=== PATIENT | male | born 1955 | race Caucasian/White ===

== ENCOUNTER 2021-10-17 23:48 | Emergency (ER) | payer MEDICARE, OTHER ==
[2021-10-18 00:34] VITALS: BP 159/89; PULSE 106
[2021-10-18] MEDS ORDERED: Sodium Chloride 0.9% 10 ML Syringe FLUSH PRN (01:03)
--- NOTE | 2021-10-18 01:10 | EDM.PDOC ---
ED HPI GENERAL MEDICAL PROBLEM - General Chief Complaint: General Stated Complaint: TOOTH PAIN Time Seen by Provider: 10/18/21 00:53 Source of Information: Reports: Patient History Limitations: Reports: No Limitations - History of Present Illness INITIAL COMMENTS - FREE TEXT/NARRATIVE: Patient presents the emergency room today secondary to left upper dental concern. Patient has been under care of a local dentist Guzman Blum starting 19 September timeframe he was given a round of Augmentin and then seen in follow- up with an attempt for dental extraction unable to extract teeth had return of dental swelling and was placed on another round of Augmentin he is on day 7 of that. Also had recommendation for follow-up with the oral surgeon he has attempted to get in to see the oral surgeon Guzman Blum but there but definitely lacking the first of the year he has not tried any other location. Patient has throbbing and swelling to his left cheek and under his eye lid area no pain he says no fevers no chills he came in because he woke up tonight with a puffy eye increased swelling in his left cheek area he felt his heart pounding and he noted that his blood pressure was. Patient states that he has no drainage or discharge or symptoms otherwise PMH--HTN, BPH, tobacco use d/o, recovered alcoholic, recovered polysub abuse Meds--lisionopril, flomax NKDA Tob--former smoker 3ppd, now only uses chewing tob EtOH--none currently/recovered alcoholic Drugs--former polysubstance abuse/recovered Patient reports having had COVID in March 2021, he has not received his COVID immunization - Related Data Allergies Allergy/AdvReac Type Severity Reaction Status Date / Time No Known Allergies Allergy Verified 03/12/16 11:03 Home Meds: Home Meds Amoxicillin 875 mg PO BID 10/18/21 [History] Finasteride 5 mg PO DAILY 10/18/21 [History] Naproxen Sodium [Aleve] 1 tab PO BID PRN 10/18/21 [History] Simvastatin [Zocor] 20 mg PO DAILY 10/18/21 [History] Tamsulosin [Flomax] 0.4 mg PO DAILY 10/18/21 [History] lisinopriL [Lisinopril] 10 mg PO DAILY 10/18/21 [History] Past Medical History Cardiovascular History: Reports: Hypertension Respiratory History: Reports: Bronchitis, Recurrent Genitourinary History: Reports: BPH Musculoskeletal History: Reports: Fracture Neurological History: Reports: Other (See Below) Other Neuro History: bells palsy Psychiatric History: Reports: Depression - Infectious Disease History Infectious Disease History: Reports: Chicken Pox, Hepatitis C - Past Surgical History HEENT Surgical History: Reports: Oral Surgery Social & Family History - Tobacco Use Years of Tobacco use: 14 Packs/Tins Daily: 0.3 - Caffeine Use Caffeine Use: Reports: Coffee - Recreational Drug Use Recreational Drug Use: No ED ROS GENERAL - Review of Systems Review Of Systems: Comprehensive ROS is negative, except as noted in HPI. Constitutional: Denies: Fever, Chills, Night Sweats, Decreased Appetite HEENT: Reports: Dental Pain Respiratory: Reports: No Symptoms Cardiovascular: Reports: No Symptoms GI/Abdominal: Reports: No Symptoms ED EXAM, GENERAL - Physical Exam Exam: See Below Exam Limited By: No Limitations General Appearance: Alert, WD/WN, No Apparent Distress Eye Exam: Bilateral Eye: EOMI, PERRL, Vision Changes Ears: Normal External Exam, Hearing Grossly Normal Nose: Normal Inspection Throat/Mouth: Normal Voice, No Airway Compromise, Other (Patient noted to have generalized poor dentition with the majority of his teeth missing area of concern is his left upper jawline cheek area there is some mild gum erythema and edema he has 1 tooth located in that area that is in poor repair significant plaquing. No drainage/discharge from dentatio) Head: Facial Swelling, Facial Tenderness, Other (patient has noted edema to lower left eye/orbital area, noted induration/erythema to left check area, denies tendereness) Neck: Normal Inspection, Supple, Non-Tender, Full Range of Motion Respiratory/Chest: No Respiratory Distress, Lungs Clear, Normal Breath Sounds, No Accessory Muscle Use Cardiovascular: Normal Peripheral Pulses, Regular Rate, Rhythm, No Edema, No Murmur Peripheral Pulses: 2+: Radial (L), Radial (R) GI/Abdominal: Normal Bowel Sounds, Soft (Male) Exam: Deferred Rectal (Males) Exam: Deferred Back Exam: Normal Inspection Extremities: Normal Inspection, Normal Range of Motion, Normal Capillary Refill Neurological: Alert, Oriented, CN II-XII Intact, Normal Cognition, Normal Gait, No Motor/Sensory Deficits Psychiatric: Normal Affect, Normal Mood Skin Exam: Warm, Dry, Intact, Normal Color Course - Vital Signs Last Recorded V/S: Last Vital Signs Temp 98.3 F 10/18/21 00:44 Pulse 106 H 10/18/21 00:44 Resp 18 10/18/21 00:44 BP 159/89 H 10/18/21 00:44 Pulse Ox 96 10/18/21 00:44 - Orders/Labs/Meds Orders: Active Orders 24 hr Category Date Time Status Iopamidol [Isovue-300 (61%)] Med 10/18/21 01:30 Active 100 ml IV . DIRECTED Sodium Chloride 0.9% [Saline Flush] Med 10/18/21 01:03 Active 10 ml FLUSH ASDIRECTED PRN Saline Lock Insert [OM.PC] Routine Oth 10/18/21 01:03 Ordered Medication Orders Iopamidol (Iopamidol 612 Mg/Ml 100 Ml Bottle) 100 ml IV . DIRECTED ROSITA Last Admin: 10/18/21 01:34 Dose: 100 ml Documented by: STALIN Sodium Chloride (Sodium Chloride 0.9% 10 Ml Syringe) 10 ml FLUSH ASDIRECTED PRN PRN Reason: Keep Vein Open Last Admin: 10/18/21 01:33 Dose: 10 ml Documented by: MAGDA Labs: Laboratory Tests 10/18/21 10/18/21 Range/Units 01:17 01:17 WBC 8.1 (4.5-11.0) K/uL RBC 5.26 (4.30-5.90) M/uL Hgb 14.6 (12.0-15.0) g/dL Hct 44.1 (40.0-54.0) % MCV 84 (80-98) fL MCH 28 (27-31) pg MCHC 33 (32-36) % Plt Count 274 (150-400) K/uL Neut % (Auto) 81.4 H (36-66) % Lymph % (Auto) 9.9 L (24-44) % Walker % (Auto) 7.4 H (2-6) % Eos % (Auto) 1.2 L (2-4) % Baso % (Auto) 0.1 (0-1) % Sodium 139 L (140-148) mmol/L Potassium 3.9 (3.6-5.2) mmol/L Chloride 101 (100-108) mmol/L Carbon Dioxide 29 (21-32) mmol/L Anion Gap 12.9 (5.0-14.0) mmol/L BUN 19 H (7-18) mg/dL Creatinine 1.3 (0.8-1.3) mg/dL Est Cr Clr Drug Dosing 54.08 mL/min Estimated GFR (MDRD) 55 L (>60) Glucose 112 H (74-106) mg/dL Calcium 8.7 (8.5-10.1) mg/dL Meds: Medications Generic Name Dose Route Start Last Admin Trade Name Freq PRN Reason Stop Dose Admin Iopamidol 100 ml 10/18/21 01:30 10/18/21 01:34 Iopamidol 612 Mg/Ml 100 Ml Bottle IV 100 ml . DIRECTED ROSITA Administration Sodium Chloride 10 ml 10/18/21 01:03 10/18/21 01:33 Sodium Chloride 0.9% 10 Ml Syringe FLUSH 10 ml ASDIRECTED PRN Administration Keep Vein Open Discontinued Medications Generic Name Dose Route Start Last Admin Trade Name Freq PRN Reason Stop Dose Admin Sodium Chloride 75 mls @ 2 mls/sec 10/18/21 01:23 10/18/21 01:33 Normal Saline IV 10/18/21 01:24 2 mls/sec ASDIRECTED STA Administration - Radiology Interpretation Free Text/Narrative:: CT Soft tissue facial noted for #1 soft tissue density with adjacent fat stranding in the left nasolabial fold likely represents phlegmon no discrete abscess there is periodontal disease in the left maxillary canine likely source #2 is left upper orbital edema no underlying abscess. See full report for details CT Results Time: 03:14 Departure - Departure Time of Disposition: 03:14 Disposition: Home, Self-Care 01 Condition: Good Clinical Impression: Facial cellulitis, Periodontal disease, unspecified, Dental caries - Discharge Information *PRESCRIPTION DRUG MONITORING PROGRAM REVIEWED*: Not Applicable *COPY OF PRESCRIPTION DRUG MONITORING REPORT IN PATIENT JOSE: Not Applicable Instructions: Dental Caries, Adult, [id number], Cellulitis, Adult, [id number], Diet and Dental Disease Referrals: PCP,None [Primary Care Provider] - Forms: ED Department Discharge Additional Instructions: Is recommended that you have an antibiotic change at this time secondary to increasing symptoms on current antibiotic in which this is your second course of. I provided you with a prescription for clindamycin take 2 tablets every 6 hours until gone. It is strongly recommended that you find an oral surgeon who can see you sooner then your reported November timeframe as you need to have definitive care related to dental infection that is causing cellulitis Ensure you are drinking plenty of fluids to include water, juice, sports drinks of choice to stay well-hydrated Use acetaminophen (Tylenol) and/or ibuprofen (Motrin, Advil) for any pain disco mfort fevers chills that you may have related to your cellulitis and dental concerns It is recommended that you follow-up with your primary care provider/family physician in regards to facial cellulitis to ensure that symptoms are improving in nature scheduled in the next 3 to 5 days Sepsis Event Note (ED) - Focused Exam Vital Signs: Vital Signs Temp Pulse Resp BP Pulse Ox 10/18/21 00:44 98.3 F 106 H 18 159/89 H 96 10/18/21 00:31 98.3 F 106 H 18 159/89 H 96 - My Orders Last 24 Hours: My Active Orders 10/18/21 01:03 Sodium Chloride 0.9% [Saline Flush] 10 ml FLUSH ASDIRECTED PRN Saline Lock Insert [OM.PC] Routine 10/18/21 01:30 Iopamidol [Isovue-300 (61%)] 100 ml IV . DIRECTED - Assessment/Plan Last 24 Hours: My Active Orders 10/18/21 01:03 Sodium Chloride 0.9% [Saline Flush] 10 ml FLUSH ASDIRECTED PRN Saline Lock Insert [OM.PC] Routine 10/18/21 01:30 Iopamidol [Isovue-300 (61%)] 100 ml IV . DIRECTED
[2021-10-18] MEDS ORDERED: Sodium Chloride 0.9% 75 ML IV STA (01:23)
[2021-10-18] MEDS ORDERED: Iopamidol 612 MG/ML 100 ML Bottle IV SCH (01:30)
--- NOTE | 2021-10-18 03:02 | CRLCT ---
For Patients: As a result of the Century Cures Act, medical imaging exams and procedure reports are released immediately into your electronic medical record. You may view this report before your referring provider. If you have questions, please contact your health care provider. Indication: Infected tooth, left facial swelling and redness Technique: Contrast enhanced axial CT images through the face. 100 mL Isovue-300 contrast agent was administered intravenously. Sagittal and coronal reconstructions are provided. Comparison: None Findings: There is soft tissue density with adjacent fat stranding in the left nasolabial fold, likely representing phlegmon. There is no appreciable underlying abscess. Subcutaneous edema involving the left cheek is consistent with cellulitis. There is lucency surrounding the root of the left maxillary canine, with erosion of the adjacent anterior ridge, consistent with periodontal disease and likely representing source of infection. Carious lesions are noted involving numerous teeth. There is mild mucosal thickening in the alveolar recesses of the maxillary sinuses. Remainder of the visualized paranasal sinuses are clear. There are no sinus air-fluid levels. The mastoid air cells and middle ear cavities are also aerated mild edema is noted in the left infraorbital region, without underlying fluid collection. The orbital contents are normal. Impression: 1. Soft tissue density with adjacent fat stranding in the left nasolabial fold likely represents phlegmon. No discrete underlying abscess. Periodontal disease of the left maxillary canine likely represents source of fashion. 2. Left infraorbital edema. No underlying abscess. Please note that all CT scans at this facility use dose modulation, iterative reconstruction, and/or weight-based dosing when appropriate to reduce radiation dose to as low as reasonably achievable. Dictated by Mal Queen MD @ 10/18/2021 3:00:11 AM (Electronically Signed)
== END 2021-10-18 03:44 | disposition home or self-care (01) ==
LOC: JP.ED 23:48
DX: L03.211 Cellulitis of face (principal); K02.9 Dental caries, unspecified; N40.0 Benign prostatic hyperplasia without lower urinary tract symptoms; I10 Essential (primary) hypertension; Z79.899 Other long term (current) drug therapy; Z72.0 Tobacco use
CPT/HCPCS: 36415; 70487; 80048; 85025; 99284; Q9967

== ENCOUNTER 2025-02-09 13:24 | Emergency (ER) | payer BC, MEDICARE ==
[2025-02-09 13:52] VITALS: PULSE 64
[2025-02-09 14:09] LABS: BASOPHILS PERCENT AUTO 0.3 % (0.1-1.3); EOSINOPHILS ABSOLUTE AUTO 0.05 K/uL (0.00-0.40); EOSINOPHILS PERCENT AUTO 0.8 % (0.0-5.4); HEMATOCRIT 40.9 % (38.4-49.7); HEMOGLOBIN 13.7 g/dL (12.9-16.9); IMMATURE GRAN PERCENT AUTO 0.2 % (0.0-0.7); LYMPHOCYTES ABSOLUTE AUTO 0.79 K/uL (0.8-3.3); LYMPHOCYTES PERCENT AUTO 12.1 % (11.4-47.7); MEAN CORPUSCULAR HEMOGLOBIN 28.1 pg (31.6-35.5); MEAN CORPUSCULAR HGB CONC 33.5 g/dL (31.6-35.5); MEAN CORPUSCULAR VOLUME 83.8 fL (81.4-99.0); MONOCYTES PERCENT AUTO 4.6 % (3.3-12.6); NEUTROPHILS ABSOLUTE AUTO 5.37 K/uL (1.0-7.6); PLATELET COUNT,PLT 233 K/uL (130-375); RED BLOOD CELL COUNT 4.88 M/uL (4.14-5.76); WHITE BLOOD CELL COUNT,WBC 6.5 K/uL (3.2-11.0)
[2025-02-09 14:11] LABS: BASOPHILS ABSOLUTE AUTO 0.02 K/uL (0.00-0.10); IMMATURE GRAN ABSOLUTE AUTO 0.01 K/uL (0.00-0.23)
[2025-02-09] MEDS: Aspirin 81 MG Tab.Chew PO ONE (14:18)
[2025-02-09 14:42] LABS: ALANINE AMINOTRANSFERASE,ALT 20 U/L (12-78); ALBUMIN 3.5 g/dL (3.4-5.0); ALKALINE PHOSPHATASE 70 U/L (46-116); ANION GAP 10.1 mmol/L (5.0-14.0); ASPARTATE AMNIOTRANSFERASE,AST 12 U/L (15-37); BILIRUBIN TOTAL 0.2 mg/dL (0.2-1.0); BLOOD UREA NITROGEN,BUN 15 mg/dL (7-18); C-REACTIVE PROTEIN 0.58 mg/dL (<0.50); CALCIUM 8.5 mg/dL (8.5-10.1); CARBON DIOXIDE,CO2 27 mmol/L (21-32); CHLORIDE,CL 103 mmol/L (100-108); EST CRCL DRUG DOSING (CG) 67.45 mL/min; ESTIMATED GFR 81 mL/min (>60); GLUCOSE RANDOM 123 mg/dL (74-106); PROTEIN TOTAL,TP 6.9 g/dL (6.4-8.2); SODIUM,NA 140 mmol/L (140-148); TROPONIN I HIGH SENSITIVITY 11.4 pg/mL (<=60.3)
[2025-02-09 15:50] VITALS: BP 155/77
== END 2025-02-09 15:50 | disposition home or self-care (01) ==
LOC: JP.ED 13:24
DX: R07.89 Other chest pain (principal); I10 Essential (primary) hypertension; F17.210 Nicotine dependence, cigarettes, uncomplicated; Z79.899 Other long term (current) drug therapy
CPT/HCPCS: 36415; 71046; 71046-26; 80053; 84484; 85025; 85379; 86140; 93005; 93010; 99284; 99285; A9270-GY